=== PATIENT | male | born 1945 | race Caucasian/White ===

== ENCOUNTER 2018-05-06 12:15 | Emergency (ER) | payer MEDICARE, OTHER ==
[2018-05-06 12:29] VITALS: BP 113/70; PULSE 64; RESP 18; TEMP 97.7
--- NOTE | 2018-05-06 14:48 | ED ---
General Adult HPI - General Source: patient Mode of arrival: ambulatory Limitations: no limitations <Jayjay Espinal - Last Filed: 05/06/18 14:46> - General Source: patient, RN notes reviewed Mode of arrival: ambulatory Limitations: no limitations <David Pedersen - Last Filed: 05/06/18 15:07> - General Chief complaint: Eye Problems Stated complaint: Vision Issue Time Seen by Provider: 05/06/18 13:37 - History of Present Illness Initial comments: 72-year-old male presents to the emergency department for a chief complaint of visual loss 2 days. Patient states the visual losses in the medial aspect of the left I. He states vision appears blurry. He describes a black area in the medial aspect of his vision. Patient admits to this appearing as a curtain. Patient denies pain in the eye. Patient denies headache at this time. Patient admits to high blood pressure but blood pressure was good today. Patient is diabetic but A1c is controlled at 5.9. He has recently decreased his insulin use. Patient denies any injuries to the head or the eye. Patient denies any weakness in any extremities. Patient has no other complaints at this time including shortness of breath, chest pain, abdominal pain, nausea or vomiting, headache, or visual changes. (David Pedersen) - Related Data Home Medications Medication Instructions Recorded Confirmed Albuterol Inhaler [Ventolin Hfa 1 - 2 puff INHALATION RT-Q4H PRN 07/25/16 Inhaler] Atorvastatin [Lipitor] 40 mg PO HS 07/25/16 07/25/16 Budesonide-Formot 160-4.5 Mcg 2 puff INHALATION RT-BID 07/25/16 07/25/16 [Symbicort 160-4.5 Mcg Inhaler] Gabapentin [Neurontin] 200 mg PO HS 07/25/16 07/25/16 Losartan Potassium 50 mg PO DAILY 07/25/16 07/25/16 Tiotropium [place] [Spiriva] 1 cap INHALATION RT-DAILY 07/25/16 07/25/16 amLODIPine [Norvasc] 5 mg PO DAILY 07/25/16 07/25/16 Previous Rx's Medication Instructions Recorded Insulin Aspart [NovoLOG 10 unit SQ TID #0 07/28/16 (formulary)] Insulin Detemir [Levemir Flextouch] 12 units SQ HS #0 07/28/16 Levofloxacin [Levaquin] 500 mg PO DAILY #5 tab 07/28/16 predniSONE 10 mg PO DIRECTED #24 tab 07/28/16 Allergies Allergy/AdvReac Type Severity Reaction Status Date / Time Penicillins Allergy Unknown Verified 05/06/18 12:25 venom-honey bee Allergy Unknown Verified 05/06/18 12:25 [bee venom (honey bee)] Review of Systems ROS Other: All systems not noted in ROS Statement are negative. <Jayjay Espinal - Last Filed: 05/06/18 14:46> ROS Other: All systems not noted in ROS Statement are negative. <David Pedersen P - Last Filed: 05/06/18 15:07> ROS Statement: Those systems with pertinent positive or pertinent negative responses have been documented in the HPI. Past Medical History Past Medical History: COPD, Diabetes Mellitus, Hyperlipidemia, Hypertension Additional Past Medical History / Comment(s): patient states he has trigger finger, left ring finger. History of Any Multi-Drug Resistant Organisms: None Reported Additional Past Surgical History / Comment(s): carpal tunnel, patient states lower back surgery unable to recall exact surgery. Past Psychological History: No Psychological Hx Reported Smoking Status: Former smoker Past Alcohol Use History: None Reported Past Drug Use History: None Reported <Jayjya Espinal - Last Filed: 05/06/18 14:46> General Exam Limitations: no limitations <Jayjay Espinal - Last Filed: 05/06/18 14:46> Limitations: no limitations General appearance: alert, in no apparent distress Head exam: Present: atraumatic, normocephalic, normal inspection Eye exam: Present: normal appearance, PERRL, EOMI. Absent: scleral icterus, conjunctival injection, periorbital swelling Pupils: Present: other (Patient has loss of medial vision in the left eye when performing visual tomlinson test. Right eye is normal.) Expanded Eyelids: Normal Inspection: Bilateral Pupils: Regular, Round: Bilateral, Reactive: Bilateral Sclera/Conjunctival: Normal Inspection: Bilateral Anterior chamber: Normal Inspection: Bilateral Visual acuity (R) = 20/: 50 Visual acuity (L) = 20/: 70 IOP (R) in mmH IOP (L) in mmH <David Pedersen P - Last Filed: 05/06/18 15:07> Vital Signs 05/06/18 12:26 Temperature 97.7 F Pulse Rate 64 Respiratory 18 Rate Blood Pressure 113/70 O2 Sat by Pulse 96 Oximetry Medical Decision Making <Jayjay Espinal - Last Filed: 05/06/18 14:46> <David Pedersen - Last Filed: 05/06/18 15:07> - Medical Decision Making Attending note, medical decision making; this is a 72-year-old male here with his . The patient reports 2 days ago starting having difficulty with his field of vision on the medial aspect from the left eye. Denies any pain. Vital signs are stable normal blood pressure. He is an insulin-dependent diabetic but has gotten off the insulin because of better eating habits. Denies any headache. No eye pain. Examination finds decreased field of vision to the medial aspect of the left eye. Also the ocular pressure on the left eye was 17. Extraocular movement normal. Pupils equal and reactive. I discussed the case with the patient and on-call eye doctor. Visual acuity reported to be 20/70. Eye doctor will see the patient in the office on discharge from the emergency room. Dr. Espinal (Jayjay Espinal) Patient was given instructions to get to Dr. Schroeder's office. He will go there straight from here. He will return to the emergency department if he has any worsening symptoms. He is aware of this. (David Pedersen) Disposition <Jayjay Espinal - Last Filed: 05/06/18 14:46> Is patient prescribed a controlled substance at d/c from ED?: No Time of Disposition: 14:55 <David Pedersen - Last Filed: 05/06/18 15:07> Clinical Impression: Visual loss Disposition: HOME SELF-CARE Condition: Good Additional Instructions: Please go straight to Dr. Schroeder's office. Please return to the emergency department if you have any worsening symptoms. Referrals: [facility],Clinic [Primary Care Provider] - 1-2 days Remington Schroeder MD [STAFF PHYSICIAN] - 1-2 days
== END 2018-05-06 15:04 | disposition home or self-care (01) ==
LOC: EC 12:15
DX: H54.7 Unspecified visual loss (principal); J44.9 Chronic obstructive pulmonary disease, unspecified; E78.5 Hyperlipidemia, unspecified; I10 Essential (primary) hypertension; Z87.891 Personal history of nicotine dependence; Z79.51 Long term (current) use of inhaled steroids; Z79.899 Other long term (current) drug therapy; Z88.0 Allergy status to penicillin; Z91.030 Bee allergy status
CPT/HCPCS: 99283